=== PATIENT | female | born 1945 | race Caucasian/White ===

== ENCOUNTER 2018-06-22 13:31 | Emergency (ER) | payer MEDICARE, MEDICAID ==
[~2018-06-22 13:31] MED LIST: BRIM10DR2 OP
--- NOTE | 2018-06-22 13:53 | ER Report ---
History and Physical Time Seen By MD: 13:52 HPI/ROS CHIEF COMPLAINT: Headache HISTORY OF PRESENT ILLNESS: This is a 73-year-old female presents to the emergency department from urgent care for a headache. Patient states that she's had some hypertensive issues over the last several months however has not been evaluated by a primary care provider she's been taking herbal supplements to help with the hypertension. Patient also states that over the last several months she's had a headache. Patient's did go to urgent care with some concerns of the headache, they all totally ended up sending her to the ER for further evaluation. Patient has no neuro deficits but it is atypical for her to have these headaches. Patient also states that she is concerned about some tick bites that she sustained several weeks ago, she is otherwise asymptomatic, no fevers, no chills no nausea or vomiting. She also states that she does have some slight dizziness with her headache. Patient is very vague with her symptoms , she is very vague with past medical history or medications that she is taking. Patient is currently wearing a mask in the emergency department. REVIEW OF SYSTEMS: Constitutional: No fever, no chills. Eyes: No discharge. ENT: No sore throat. Cardiovascular: No chest pain, no palpitations. Respiratory: No cough, no shortness of breath. Gastrointestinal: No abdominal pain, no vomiting. Genitourinary: No hematuria. Musculoskeletal: No back pain. Skin: No rashes. Neurological: As above. Allergies: Coded Allergies: Penicillins (Verified Allergy, Mild, 06/12/11) adhesive tape (Verified Allergy, Unknown, skin tears off, 08/10/16) orange (Verified Allergy, Unknown, 08/10/16) Home Meds Active Scripts Doxycycline Hyclate (DOXYCYCLINE HYCLATE) 100 Mg Tablet, 100 MG PO BID for 7 Days, #14 TAB Prov:CELE ZUNIGA Rohan ENRICHMENT DIRECTOR-BC 06/22/18 Discontinued Reported Medications Brimonidine Tartrate 0.15% Drops (BRIMONIDINE TARTRATE 0.15% DROPS) 10 Ml Drops , 1 DROP OP BID, ML 08/10/16 Past Medical/Surgical History The patient has a past medical and surgical history of GERD, multiple fractures , hypothyroidism, total hip. Reviewed Nurses Notes: Yes Hx Smoking: No Smoking Status: Never Smoker Hx Substance Use Disorder: No Hx Alcohol Use: No Constitutional Vital Sign - Last 24 Hours 06/22/18 06/22/18 06/22/18 06/22/18 15:18 15:25 15:30 15:35 Temp 98.6 Pulse 92 74 Resp 16 8 B/P (MAP) 176/91 188/102 (130) 170/86 (114) Pulse Ox 88 97 O2 Delivery Room Air 06/22/18 06/22/18 06/22/18 06/22/18 15:50 16:00 16:05 16:20 Pulse 80 79 82 Resp 15 14 17 B/P (MAP) 177/84 (115) Pulse Ox 97 95 95 06/22/18 06/22/18 06/22/18 06/22/18 16:30 16:35 16:50 17:00 Pulse 77 81 Resp 13 14 B/P (MAP) 157/80 (105) ???/??? (1665) Pulse Ox 97 94 06/22/18 06/22/18 06/22/18 06/22/18 17:05 17:20 17:30 17:35 Pulse ? B/P (MAP) ???/??? (1665) 06/22/18 06/22/18 06/22/18 06/22/18 17:50 18:04 18:05 18:20 Pulse ? 70 Resp 13 B/P (MAP) 179/95 (123) Pulse Ox 97 06/22/18 06/22/18 06/22/18 06/22/18 18:30 18:35 18:50 19:00 Pulse 70 69 Resp 16 21 B/P (MAP) 139/76 (97) 150/75 (100) Pulse Ox 98 91 06/22/18 06/22/18 06/22/18 06/22/18 19:05 19:20 19:30 19:45 Pulse 68 68 69 Resp 16 17 19 B/P (MAP) 153/79 (103) Pulse Ox 95 97 93 06/22/18 06/22/18 20:00 20:15 Pulse 69 67 Resp 17 11 B/P (MAP) 154/85 (108) Pulse Ox 94 93 Physical Exam General Appearance: The patient is alert, has no immediate need for airway protection and no signs of toxicity. Eyes: Pupils equal and round no pallor or injection. EOMs intact. No nystagmus. ENT, Mouth: Mucous membranes are moist. Wearing a mask. Respiratory: There are no retractions, lungs are clear to auscultation. Cardiovascular: Regular rate and rhythm. Gastrointestinal: Abdomen is soft and non tender, no masses, bowel sounds normal. Neurological: Alert and oriented 4. Moving all extremities. Following all commands. No focal neuro deficits. Cranial nerves II through XII intact. Skin: Patient does have 3 large round red blanchable spots on her right gluteal fold that were the locations that the ticks were removed from. No central bull's -eye. Musculoskeletal: Neck is supple non tender. Extremities are nontender, nonswollen and have full range of motion. DIFFERENTIAL DIAGNOSIS: After history and physical exam differential diagnosis was considered for headache including but not limited to subarachnoid hemorrhage , migraine headache, tension headache and infectious causes such as meningitis, pharyngitis and sinusitis. Medical Decision Making Data Points Result Diagram: 06/22/18 1440 06/22/18 1440 Laboratory Hematology Test 06/22/18 14:40 Red Blood Count 5.05 M/uL (4.17-5.56) Mean Corpuscular Volume 89.9 fL (80.0-96.0) Mean Corpuscular Hemoglobin 31.2 pg (26.0-33.0) Mean Corpuscular Hemoglobin Concent 34.7 g/dL (32.0-36.0) Red Cell Distribution Width 14.4 % (11.5-14.5) Mean Platelet Volume 7.5 fL (7.2-11.1) Neutrophils (%) (Auto) 64.0 % (39.4-72.5) Lymphocytes (%) (Auto) 24.6 % (17.6-49.6) Monocytes (%) (Auto) 9.5 % (4.1-12.4) Eosinophils (%) (Auto) 0.9 % (0.4-6.7) Basophils (%) (Auto) 1.0 % (0.3-1.4) Nucleated RBC Relative Count (auto) 0.0 /100WBC Neutrophils # (Auto) 2.9 K/uL (2.0-7.4) Lymphocytes # (Auto) 1.1 K/uL (1.3-3.6) Monocytes # (Auto) 0.4 K/uL (0.3-1.0) Eosinophils # (Auto) 0.0 K/uL (0.0-0.5) Basophils # (Auto) 0.0 K/uL (0.0-0.1) Nucleated RBC Absolute Count (auto) 0.00 K/uL Erythrocyte Sedimentation Rate 4 mm/HOUR (0-30) Sodium Level 141 mmol/L (137-145) Potassium Level 3.8 mmol/L (3.5-5.0) Chloride Level 105 mmol/L (98-107) Carbon Dioxide Level 27 mmol/L (22-31) Blood Urea Nitrogen 15 mg/dl (7-18) Creatinine 0.60 mg/dl (0.52-1.04) Glomerular Filtration Rate Calc > 60.0 Random Glucose 105 mg/dl (75-110) Calcium Level 9.9 mg/dl (8.4-10.2) Total Bilirubin 0.3 mg/dl (0.2-1.3) Aspartate Amino Transf (AST/SGOT) 31 U/L (0-35) Alanine Aminotransferase (ALT/SGPT) 25 U/L (0-56) Alkaline Phosphatase 68 U/L (0-126) Total Protein 7.1 g/dl (6.3-8.2) Albumin 4.6 g/dl (3.5-5.0) Chemistry Test 06/22/18 14:40 White Blood Count 4.6 k/uL (4.5-11.0) Red Blood Count 5.05 M/uL (4.17-5.56) Hemoglobin 15.8 g/dL (12.0-16.0) Hematocrit 45.4 % (34.0-47.0) Mean Corpuscular Volume 89.9 fL (80.0-96.0) Mean Corpuscular Hemoglobin 31.2 pg (26.0-33.0) Mean Corpuscular Hemoglobin Concent 34.7 g/dL (32.0-36.0) Red Cell Distribution Width 14.4 % (11.5-14.5) Platelet Count 233 K/uL (150-450) Mean Platelet Volume 7.5 fL (7.2-11.1) Neutrophils (%) (Auto) 64.0 % (39.4-72.5) Lymphocytes (%) (Auto) 24.6 % (17.6-49.6) Monocytes (%) (Auto) 9.5 % (4.1-12.4) Eosinophils (%) (Auto) 0.9 % (0.4-6.7) Basophils (%) (Auto) 1.0 % (0.3-1.4) Nucleated RBC Relative Count (auto) 0.0 /100WBC Neutrophils # (Auto) 2.9 K/uL (2.0-7.4) Lymphocytes # (Auto) 1.1 K/uL (1.3-3.6) Monocytes # (Auto) 0.4 K/uL (0.3-1.0) Eosinophils # (Auto) 0.0 K/uL (0.0-0.5) Basophils # (Auto) 0.0 K/uL (0.0-0.1) Nucleated RBC Absolute Count (auto) 0.00 K/uL Erythrocyte Sedimentation Rate 4 mm/HOUR (0-30) Glomerular Filtration Rate Calc > 60.0 Calcium Level 9.9 mg/dl (8.4-10.2) Total Bilirubin 0.3 mg/dl (0.2-1.3) Aspartate Amino Transf (AST/SGOT) 31 U/L (0-35) Alanine Aminotransferase (ALT/SGPT) 25 U/L (0-56) Alkaline Phosphatase 68 U/L (0-126) Total Protein 7.1 g/dl (6.3-8.2) Albumin 4.6 g/dl (3.5-5.0) EKG/Imaging EKG Interpretation 12 lead EKG: Rhythm: Normal sinus rhythm, ventricular rate 84 bpm. Orient: Incomplete right bundle branch block. QRS: normal ST segments: No ST depression or elevation identified. Imaging CT chest with contrast Indication: Lung nodule on x-ray. Comparison: Chest x-ray done earlier in the day. Technique: Axial CT images are obtained through the chest after administration of 80 mL Isovue 370 IV contrast. Reformatted coronal and sagittal images were reviewed. One of the following dose optimization techniques was utilized in the performance of this exam: Automated exposure control; adjustment of the mA and/ or kV according to the patient's size; or use of an iterative reconstruction technique. Specific details can be referenced in the facility's radiology CT exam operational policy. Findings: Heart is normal size without pericardial effusion. The aorta shows no aneurysm or dissection. The pulmonary arteries are grossly normal. There is no mediastinal hematoma and there is no pathologic mediastinal adenopathy seen. Both lungs show several scattered subcentimeter calcified granulomas. No other lung nodules. No consolidations, pleural effusion or pneumothorax. No focal interstitial opacities. Airways are clear. Bony structures show no acute fractures or aggressive bony lesions. Chest wall shows no enlarged axillary lymph nodes or masses. Limited views of the upper abdomen are unremarkable. IMPRESSION: 1. Both lungs show scattered subcentimeter calcified granulomas. No solid lung nodules. 2. No acute cardiopulmonary disease. Report Dictated By: Mitchell Dukes at 06/22/2018 6:06 PM Report E-Signed By: Mitchell Dukes at 06/22/2018 6:12 PM [id number] Location: [facility] - [place] Patient: Bebe Sebastian : 1945 Visit/Account:[id number] Date of Sevice: 06/22/2018 CT Head without contrast Indication: Headache. Comparison: None available Technique: Axial CT images were obtained through the brain from the skull base to the vertex without administration of IV contrast. Reformatted coronal and sagittal images were also obtained. One of the following dose optimization techniques was utilized in the performance of this exam: automated exposure control; adjustment of the mA and/ or kV according to the patient's size; or use of an iterative reconstruction technique. Specific details can be referenced in the facility's radiology CT exam operational policy. Findings: No evidence of mass, mass effect, or midline shift. No acute intracranial hemorrhage or acute territorial infarction. No extra-axial fluid collection or hydrocephalus. No abnormal density. Burroughs/ white matter differentiation appears normal. Bony structures show no fractures or lesions. Mucosal thickening seen in the left sphenoid sinus and the thoracic both maxillary sinuses. Maxillary sinus mucosal thickening could be secondary to small cyst/polyps. The remaining sinuses and mastoids visualized are clear. The visualized paranasal sinuses and mastoid air cells are clear. IMPRESSION: 1. No acute intracranial abnormality. 2. Sinus disease. Report Dictated By: Mitchell Dukes at 06/22/2018 6:02 PM Report E-Signed By: Mitchell Dukes at 06/22/2018 6:06 PM [id number] Location: [facility] - [place] Patient: Bebe Sebastian : 1945 Visit/Account:[id number] Date of Sev: 06/22/2018 Technique: CHEST PA AND LAT HISTORY: dizziness, htn Comparison studies: None FINDINGS: Small nodular opacities are noted within the visualized lung mazariegos most conspicuous within the right upper lobe. No acute airspace consolidation. The cardiomediastinal silhouette is unremarkable. IMPRESSION: 1. Small nodular opacities within the lung mazariegos concerning for pulmonary nodules. CT of the chest should be considered for evaluation. Report Dictated By: Ramone Hightower DO at 06/22/2018 3:05 PM Report E-Signed By: Ramone Hightower DO at 06/22/2018 3:09 PM [id number] ED Course/Re-evaluation ED Course The patient was admitted to room. A history and physical were obtained. Differential diagnoses were considered. An IV was started. A CBC, CMP, and EKG were obtained. Lab studies unremarkable. Given the patient's vagueness of her symptoms however with no real history of headaches, and the continuous headache she has had for a couple of weeks with high blood pressure and some vague dizziness symptoms the patient was ultimately agreeable to a CT of the head, and chest x-ray. The head CT was negative. Chest x-ray showing pulmonary nodules , I did review these results with the patient, I did tell her that it was a recommendation to follow up with a CAT scan of the chest, the patient was agreeable to this. The CT of the chest showing calcified granulomas. I reviewed this with the patient as well, I did encourage her to establish with a primary care provider here in town and follow-up within the next week for reevaluation. The patient also had several tick bites on her right gluteal fold, the largest of the size of a silver dollar, very red and blanchable does not look like cellulitis. Patient also told me that couple days after she pulled the tick out she noticed a white center. Since then she's had some of her symptoms such as fevers, chills and aches, intermittent headaches, I also sent off for a Lyme antibody, ESR was unremarkable. I did tell the patient that I was concerned about recommend spotted fever although she does not have any other significant rashes although she is also a poor historian therefore I did tell her I did like to treat her for [place] spotted fever. I did send a prescription for doxycycline to the patient's pharmacy. Patient states she would like to wait to take the medications, I did tell her that given her symptoms and the areas of concern on her buttock I wouldn't recommend taking the doxycycline. The patient expressed understanding at this time and was discharged home. The patient's blood pressure improved during the course of her stay in the emergency department, last blood pressure was 154/79. 06/22/2018 4:08:46 pm I did speak with the patient regarding the x-ray studies and the x-ray results. I did tell her that there were some nodules noted on her x-ray recommendation of the radiologist was a CT of the chest. She was agreeable to this we will proceed with a CT of the chest and they had for her headache. Decision to Disposition Date: Jun 22, 2018 Decision to Disposition Time: 20:03 Depart Departure Latest Vital Signs Vital Signs Date Time Temp Pulse Resp B/P (MAP) Pulse Ox O2 Delivery O2 Flow Rate FiO2 06/22/18 20:15 67 11 93 06/22/18 20:00 154/85 (108) 06/22/18 15:18 98.6 Room Air Impression: Primary Impression: Headache Additional Impressions: Tick bite of buttock Rash Condition: Improved Disposition: HOME OR SELF-CARE Referrals: ALVARADO HANNAH MD (PCP) 1 Week New Scripts Doxycycline Hyclate (DOXYCYCLINE HYCLATE) 100 Mg Tablet 100 MG PO BID for 7 Days, #14 TAB Prov: CELE ZUNIGA ENRICHMENT DIRECTOR-BC 06/22/18 Patient Instructions: Acute Headache (ED), Acute Rash (ED), Tick Bite (ED) Additional Instructions: Be sure to fill your prescription for doxycycline. Take medications as prescribed. Return to the emergency department for any other concerns. Establish with a primary care provider for reevaluation of your symptoms as well as the calcified granulomas on your CT. Drink plenty of water. Get plenty of rest, Problem Qualifiers Primary Impression: Headache Headache type: unspecified Headache chronicity pattern: unspecified pattern Intractability: not intractable Qualified Codes: R51 - Headache Additional Impressions: Tick bite of buttock Encounter type: initial encounter Qualified Codes: S30.860A - Insect bite ( nonvenomous) of lower back and pelvis, initial encounter; W57.XXXA - Bitten or stung by nonvenomous insect and other nonvenomous arthropods, initial encounter CELE ZUNIGA ENRICHMENT DIRECTOR-BC Jun 22, 2018 13:53
--- NOTE | 2018-06-22 14:31 | EKG ---
FACILITY: [facility] PATIENT NAME: LESVIA LAUREN : [id number] MR: [id number] V: [id number] EXAM DATE: ORDERING PHYSICIAN: CELE ZUNIGA TECHNOLOGIST: RADHA Parker Reason : DIZZY \ WEAK Blood Pressure : / mmHG Vent. Rate : 084 BPM Atrial Rate : 084 BPM P-R Int : 154 ms QRS Dur : 110 ms QT Int : 402 ms P-R-T Axes : 069 051 026 degrees QTc Int : 475 ms Normal sinus rhythm Incomplete right bundle branch block Nonspecific ST-Twave changes Abnormal ECG No previous ECGs available Confirmed by ELISEO BOLDEN ([id number]) on 06/22/2018 8:14:22 PM Referred By: ER Confirmed By:ELISEO BOLDEN
[2018-06-22 14:52] LABS: PLATELET COUNT, AUTOMATED 233 K/uL (150-450)
--- NOTE | 2018-06-22 15:13 | RADIOLOGY IMAGING REPORT ---
FACILITY: [facility] - [place] PATIENT NAME: Bebe Sebastian : 1945 MR: [id number] V: [id number] EXAM DATE: ORDERING PHYSICIAN: CELE ZUNIGA TECHNOLOGIST: [facility] Patient: Bebe Sebastian : 1945 Visit/Account:[id number] Date of Sevice: 06/22/2018 Technique: CHEST PA AND LAT HISTORY: dizziness, htn Comparison studies: None FINDINGS: Small nodular opacities are noted within the visualized lung mazariegos most conspicuous within the right upper lobe. No acute airspace consolidation. The cardiomediastinal silhouette is unremar kable. IMPRESSION: 1. Small nodular opacities within the lung mazariegos concerning for pulmonary nodules. CT of the chest should be considered for evaluation. Report Dictated By: Ramone Hightower DO at 06/22/2018 3:05 PM Report E-Signed By: Ramone Hightower DO at 06/22/2018 3:09 PM [id number]
[2018-06-22] MEDS ORDERED: DOXY-179 PO (15:56)
[2018-06-22] MEDS ORDERED: IOPAMIDOL 76% 100 ML INFUS BTL 100 ML ONE (16:02)
--- NOTE | 2018-06-22 18:09 | RADIOLOGY IMAGING REPORT ---
FACILITY: [facility] PATIENT NAME: Bebe Sebastian : 1945 MR: [id number] V: [id number] EXAM DATE: ORDERING PHYSICIAN: CELE ZUNIGA TECHNOLOGIST: [place] [facility] [place] Patient: Bebe Sebastian : 1945 Visit/Account:[id number] Date of Sevice: 06/22/2018 CT Head without contrast Indication: Headache. Comparison: None available Technique: Axial CT images were obtained through the brain from the skull base to the vertex without administration of IV contrast. Reformatted coronal and sagittal images were also obtained. One of the following dose optimization techniques was utilized in the performance of this exam: autom ated exposure control; adjustment of the mA and/or kV according to the patient's size; or use of an i terative reconstruction technique. Specific details can be referenced in the facility's radiology CT exam operational policy. Findings: No evidence of mass, mass effect, or midline shift. No acute intracranial hemorrhage or acute territorial infarction. No extra-axial fluid collection or hydrocephalus. No abnormal density. Burroughs/white matter differentiat ion appears normal. Bony structures show no fractures or lesions. Mucosal thickening seen in the left sphenoid sinus and the thoracic both maxillary sinuses. Maxillary sinus mucosal thickening could be secondary to small c yst/polyps. The remaining sinuses and mastoids visualized are clear. The visualized paranasal sinuses and mastoid air cells are clear. IMPRESSION: 1. No acute intracranial abnormality. 2. Sinus disease. Report Dictated By: Mitchell Dukes at 06/22/2018 6:02 PM Report E-Signed By: Mitchell Dukes at 06/22/2018 6:06 PM [id number]
--- NOTE | 2018-06-22 18:16 | RADIOLOGY IMAGING REPORT ---
[place] [facility] [place]: Bebe Sebastian : 1945 MR: [id number] V: [id number] EXAM DATE: ORDERING PHYSICIAN: CELE ZUNIGA TECHNOLOGIST: Location: [facility] Patient: Bebe Sebastian : 1945 Visit/Account:[id number] Date of Sevice: 06/22/2018 CT chest with contrast Indication: Lung nodule on x-ray. Comparison: Chest x-ray done earlier in the day. Technique: Axial CT images are obtained through the chest after administration of 80 mL Isovue 370 IV contrast. Reformatted coronal and sagittal images were reviewed. One of the following dose optimization techniques was utilized in the performance of this exam: Autom ated exposure control; adjustment of the mA and/or kV according to the patient's size; or use of an i terative reconstruction technique. Specific details can be referenced in the facility's radiology C T exam operational policy. Findings: Heart is normal size without pericardial effusion. The aorta shows no aneurysm or dissection. The pul monary arteries are grossly normal. There is no mediastinal hematoma and there is no pathologic mediastinal adenopathy seen. Both lungs show several scattered subcentimeter calcified granulomas. No other lung nodules. No conso lidations, pleural effusion or pneumothorax. No focal interstitial opacities. Airways are clear. Bony structures show no acute fractures or aggressive bony lesions. Chest wall shows no enlarged axil dulce lymph nodes or masses. Limited views of the upper abdomen are unremarkable. IMPRESSION: 1. Both lungs show scattered subcentimeter calcified granulomas. No solid lung nodules. 2. No acute cardiopulmonary disease. Report Dictated By: Mitchell Dukes at 06/22/2018 6:06 PM Report E-Signed By: Mitchell Dukes at 06/22/2018 6:12 PM [id number]
[2018-06-22 20:00] VITALS: BP 154/85
== END 2018-06-22 20:32 | disposition home or self-care (01) ==
LOC: ER 13:51
DX: R51 Headache (principal); S30.860A Insect bite (nonvenomous) of lower back and pelvis, initial encounter; R21 Rash and other nonspecific skin eruption; X58.XXXA Exposure to other specified factors, initial encounter; K21.9 Gastro-esophageal reflux disease without esophagitis; E03.9 Hypothyroidism, unspecified; R91.8 Other nonspecific abnormal finding of lung field
CPT/HCPCS: 70450; 71046; 71260; 85025; 85651; 86618; 93005; 99284; Q9967; 82040; 82247; 82310; 82374; 82435; 82565; 82947; 84075; 84132; 84155; 84295; 84450; 84460; 84520